=== PATIENT | female | born 1960 | race African-American/Black ===

== ENCOUNTER 2016-09-25 08:20 | Emergency (ER) | payer MEDICAID, OTHER ==
[~2016-09-25] VITALS: Ht 162.6 cm; Wt 80.0 kg
[~2016-09-25 08:20] MED LIST: CLON0.5T PO; DIPH25CA83 PO; ESCI10TA PO; HYDR25TA PO; LISI-604 PO; LORA0.5T2 PO; ZOLP10TA2 PO
[2016-09-25] MEDS ORDERED: HYDROCODONE/ACETAMINOPHEN 5/325MG TABLET PO ONE ×2 (09:00→10:15)
[2016-09-25] MEDS ORDERED: ALBUTEROL (0.083%) 2.5MG/3ML NEB HHN ONE (09:15)
[2016-09-25] MEDS ORDERED: KETOROLAC 60MG/2ML VIAL IM ONE (09:15)
[2016-09-25 10:24] VITALS: BP 148/90
== END 2016-09-25 10:30 | disposition home or self-care (01) ==
LOC: ER 08:56
DX: M25.512 Pain in left shoulder (principal); J44.1 Chronic obstructive pulmonary disease with (acute) exacerbation; I10 Essential (primary) hypertension; J45.909 Unspecified asthma, uncomplicated; F31.9 Bipolar disorder, unspecified; F17.200 Nicotine dependence, unspecified, uncomplicated; Z90.710 Acquired absence of both cervix and uterus; Z79.899 Other long term (current) drug therapy
CPT/HCPCS: 73030; 94640; 96372; 99284; J1885; J7611; A4565

== ENCOUNTER 2017-05-21 03:18 | Emergency (ER) | payer OTHER ==
[~2017-05-21] VITALS: Ht 154.9 cm; Wt 82.0 kg
[2017-05-21] MEDS ORDERED: KETOROLAC 60MG/2ML VIAL IM ONE (06:30)
[2017-05-21 06:38] VITALS: BP 111/68
== END 2017-05-21 07:54 | disposition home or self-care (01) ==
LOC: ER 03:18
DX: M79.674 Pain in right toe(s) (principal); J44.9 Chronic obstructive pulmonary disease, unspecified; I10 Essential (primary) hypertension; F17.200 Nicotine dependence, unspecified, uncomplicated; Z86.19 Personal history of other infectious and parasitic diseases; W01.198A Fall on same level from slipping, tripping and stumbling with subsequent striking against other object, initial encounter; Y93.89 Activity, other specified; Y92.89 Other specified places as the place of occurrence of the external cause; Y99.8 Other external cause status
CPT/HCPCS: 73660; 96372; 99284; J1885; Z7610

== ENCOUNTER 2017-09-06 08:25 | Emergency (ER) | payer OTHER ==
[~2017-09-06] VITALS: Ht 154.9 cm; Wt 78.0 kg
[2017-09-06] MEDS ORDERED: ACETAMINOPHEN 325MG TABLET PO ONE (10:30)
[2017-09-06 10:34] VITALS: BP 131/89
[2017-09-06 10:57] LABS: CLARITY URINE CLEAR (CLEAR); COLOR URINE YELLOW (YELLOW); KETONES URINE NEGATIVE (NEGATIVE); LEUKOCYTE ESTERASE URINE TRACE (NEGATIVE); NITRITE URINE NEGATIVE (NEGATIVE); OCCULT BLOOD URINE NEGATIVE (NEGATIVE); PROTEIN URINE TRACE (NEGATIVE); SPECIFIC GRAVITY URINE 1.015 (1.005-1.030)
== END 2017-09-06 11:01 | disposition left against medical advice (07) ==
LOC: ER 08:52
DX: M79.1 Myalgia (principal); R05 Cough; R09.89 Other specified symptoms and signs involving the circulatory and respiratory systems; R68.83 Chills (without fever); J44.0 Chronic obstructive pulmonary disease with (acute) lower respiratory infection; I10 Essential (primary) hypertension; F17.200 Nicotine dependence, unspecified, uncomplicated; Z86.718 Personal history of other venous thrombosis and embolism
CPT/HCPCS: 81003; 99283

== ENCOUNTER 2020-10-06 19:36 | Emergency (ER) | payer MEDICAID, OTHER ==
[~2020-10-06] VITALS: Ht 154.9 cm; Wt 64.0 kg
[~2020-10-06 19:36] MED LIST changes: -LISI-604 PO; +LISI20TA31 PO
[2020-10-06] MEDS ORDERED: SODIUM CHLORIDE 0.9% 1000ML BAG (SEPSIS BOLUS) IV ONE (20:15)
[2020-10-06] MEDS ORDERED: IPRATROPIUM BROMIDE (0.02%) 0.5MG/2.5ML NEB HHN STA (21:07)
[2020-10-06] MEDS ORDERED: ALBUTEROL (0.083%) 2.5MG/3ML NEB HHN STA (21:07)
[2020-10-06] MEDS ORDERED: METHYLPREDNISOLONE SOD SUCC 125 MG/2 ML VIAL IV STA (21:07)
[2020-10-06] MEDS ORDERED: CEFTRIAXONE 1 G PREMIX 50 ML IV ONE (21:15)
[2020-10-06] MEDS ORDERED: AZITHROMYCIN 500 MG in DEXT 5% WATER 250 ML IV SCH (21:15)
[2020-10-06] MEDS ORDERED: MORPHINE SULFATE 4 MG/ML CPJ (NOT FOR IM USE) IV ONE (21:30)
[2020-10-06] MEDS ORDERED: SODIUM CHLORIDE 0.9% 1,000 ML IV ONE (21:30)
[2020-10-06 21:49] LABS: BASOPHILS % 1.1 % (0.0-2.0); EOSINOPHILS % 5.8 % (0.0-5.0); HEMATOCRIT. 39.8 % (36.0-48.0); HEMOGLOBIN. 13.4 g/dL (12.0-16.0); LYMPHOCYTES % 42.6 % (20.0-50.0); MEAN CORPUSCULAR VOLUME 92.1 fL (81.0-99.0); MONOCYTES % 8.9 % (2.0-8.0); NEUTROPHILS % 41.6 % (40.0-76.0); PLATELET 292 x1000/uL (130-400); RED BLOOD CELL COUNT 4.32 mill/uL (4.2-5.4); RED CELL DISTRIBUTION WIDTH 13.7 % (11.6-14.6)
[2020-10-06 21:55] LABS: CHLORIDE 111 mEq/L (98-107)
[2020-10-06 21:58] LABS: INR 1.1; PROTHROMBIN TIME 11.3 sec (9.6-11.0)
[2020-10-07] MEDS ORDERED: POTASSIUM CHLORIDE 20MEQ TABLET SR PO NR (00:30)
[2020-10-07] MEDS ORDERED: AMOX-424 MT (00:31)
[2020-10-07] MEDS ORDERED: AZIT250T12 MT (00:32)
[2020-10-07] MEDS ORDERED: P50 MT (00:42)
[2020-10-07] MEDS ORDERED: ALBU6.7H9 INH (00:43)
[2020-10-07 01:05] VITALS: BP 124/77
== END 2020-10-07 01:05 | disposition home or self-care (01) ==
LOC: ER 19:36
DX: J18.9 Pneumonia, unspecified organism (principal); J44.9 Chronic obstructive pulmonary disease, unspecified
CPT/HCPCS: 36415; 71045; 80053; 84145; 84484; 85025; 85610; 93005; 96365; 96375; 99285; J0456; J0696; J2270; J2930; J7030; J7060; Z7610

== ENCOUNTER 2021-02-27 18:07 | Emergency (ER) | payer MEDICAID, OTHER ==
[~2021-02-27] VITALS: Ht 154.9 cm; Wt 76.0 kg
[~2021-02-27 18:07] MED LIST changes: +ALBU6.7H9 INH; +AMOX-424 MT; +AZIT250T12 MT; +P50 MT
[2021-02-27 18:36] VITALS: BP 123/86
[2021-02-27] MEDS: IBUPROFEN 600MG TABLET PO STA (18:40)
== END 2021-02-27 19:06 | disposition left against medical advice (07) ==
LOC: ER 18:07
DX: R05 Cough (principal); J44.1 Chronic obstructive pulmonary disease with (acute) exacerbation; I10 Essential (primary) hypertension; Z79.899 Other long term (current) drug therapy; Z98.890 Other specified postprocedural states
CPT/HCPCS: 71045; 99282; 99283

== ENCOUNTER 2021-09-03 15:06 | Emergency (ER) | payer MEDICAID, OTHER ==
[~2021-09-03] VITALS: Ht 157.5 cm; Wt 74.0 kg
[2021-09-03] MEDS ORDERED: MORPHINE SULFATE 4 MG/ML CPJ (NOT FOR IM USE) IV STA (15:26)
[2021-09-03] MEDS ORDERED: ONDANSETRON HCL 4MG/2ML INJ IV STA (15:26)
[2021-09-03] MEDS ORDERED: PANTOPRAZOLE SODIUM 40 MG/VIAL IV ONE (15:30)
[2021-09-03] MEDS ORDERED: SODIUM CHLORIDE 0.9% 1,000 ML IV ONE (15:30)
[2021-09-03 16:53] LABS: BASOPHILS % 0.6 % (0.0-2.0); HEMATOCRIT. 45.3 % (36.0-48.0); HEMOGLOBIN. 15.3 g/dL (12.0-16.0); LYMPHOCYTES % 50.3 % (20.0-50.0); MEAN CORPUSCULAR VOLUME 91.9 fL (81.0-99.0); MEAN PLATELET VOLUME 7.5 fl (7.4-10.4); MONOCYTES % 11.7 % (2.0-8.0); NEUTROPHILS % 35.4 % (40.0-76.0); PLATELET 213 x1000/uL (130-400); RED BLOOD CELL COUNT 4.93 mill/uL (4.2-5.4); RED CELL DISTRIBUTION WIDTH 13.6 % (11.6-14.6)
[2021-09-03 17:00] LABS: CHLORIDE 111 mEq/L (98-107)
[2021-09-03 17:02] LABS: INR 1.1; PARTIAL THROMBOPLASTIN TIME 27.5 sec (23.4-31.0); PROTHROMBIN TIME 11.7 sec (9.6-11.0)
[2021-09-03 17:10] LABS: CLARITY URINE CLEAR (CLEAR); COLOR URINE YELLOW (YELLOW); KETONES URINE TRACE (NEGATIVE); LEUKOCYTE ESTERASE URINE 1+ (NEGATIVE); NITRITE URINE NEGATIVE (NEGATIVE); OCCULT BLOOD URINE NEGATIVE (NEGATIVE); PH URINE 7.5 (4.5-8.0); PROTEIN URINE NEGATIVE (NEGATIVE); SPECIFIC GRAVITY URINE 1.022 (1.005-1.030)
[2021-09-03] MEDS ORDERED: CEPH500C2 MT (17:57)
[2021-09-03 18:16] VITALS: BP 149/86
== END 2021-09-03 19:36 | disposition left against medical advice (07) ==
LOC: ER 15:06 → CANBEDREQ 21:28
DX: K92.2 Gastrointestinal hemorrhage, unspecified (principal); N39.0 Urinary tract infection, site not specified; Z20.822 Contact with and (suspected) exposure to COVID-19; J44.9 Chronic obstructive pulmonary disease, unspecified; Z87.01 Personal history of pneumonia (recurrent); I10 Essential (primary) hypertension
CPT/HCPCS: 36415; 71045; 74176; 80053; 81003; 83690; 83880; 84484; 85025; 85610; 85730; 86850; 86900; 86901; 87426; 93005; 96361; 96374; 96375; 99285; C9113; J2270; J2405; J7030

== ENCOUNTER 2021-09-05 22:46 | Emergency (ER) | payer OTHER ==
[~2021-09-05] VITALS: Ht 154.9 cm; Wt 69.0 kg
[~2021-09-05 22:46] MED LIST changes: +CEPH500C2 MT
[2021-09-05 22:51] VITALS: BP 162/101
== END 2021-09-05 23:15 | disposition left against medical advice (07) ==
LOC: ER 22:46
DX: Z53.21 Procedure and treatment not carried out due to patient leaving prior to being seen by health care provider (principal)